=== PATIENT | female | born 1985 | race Hispanic/Latino ===

== ENCOUNTER → 2023-02-23 | Outpatient (CLI) | payer OTHER ==
[~2023-02-23] MED LIST: D 101000 PO; LISI20TA33 PO; METF500T13 PO; MULT-90 PO; SIMV-253 PO
== END ==
LOC: M WHC 09:28
PROVIDERS: ATTEND Internal Medicine
DX: N60.01 Solitary cyst of right breast (principal); R92.332 Mammographic heterogeneous density, left breast; N63.11 Unspecified lump in the right breast, upper outer quadrant

== ENCOUNTER → 2023-02-23 | Outpatient (CLI) | payer OTHER ==
[2023-02-23 11:05] VITALS: TEMP 98.4
[2023-02-23 13:31] VITALS: BP 122/60; O2SAT 98
== END ==
LOC: M WHCPRO 09:29 → EDUNIT# 11:00
PROVIDERS: ATTEND Internal Medicine
DX: C50.211 Malignant neoplasm of upper-inner quadrant of right female breast (principal); N60.01 Solitary cyst of right breast; N63.12 Unspecified lump in the right breast, upper inner quadrant; N63.11 Unspecified lump in the right breast, upper outer quadrant; R92.332 Mammographic heterogeneous density, left breast
CPT/HCPCS: 19083; 76642; 77065; 88305; G0279

== ENCOUNTER → 2023-03-30 | Outpatient (CLI) | payer OTHER ==
[~2023-03-30] MED LIST changes: +PROHANCE 279.3MG/ML 15ML VIAL ONE; +PROHANCE 279.3MG/ML 5ML VIAL ONE
== END ==
LOC: M PLAIMG 09:08
PROVIDERS: ATTEND Internal Medicine
DX: C50.911 Malignant neoplasm of unspecified site of right female breast (principal)
CPT/HCPCS: A9576; C8908

== ENCOUNTER → 2023-04-04 | Outpatient (REF) | payer OTHER ==
[~2023-04-04] MED LIST changes: -PROHANCE 279.3MG/ML 15ML VIAL ONE; -PROHANCE 279.3MG/ML 5ML VIAL ONE
[2023-04-04 14:56] LABS: FREE T4 1.21 NG/DL (0.89-1.76); THYROID STIMULATING HORMONE 1.841 uIU/ML (0.55-4.78)
[2023-04-04 14:57] LABS: FOLLICLE STIMULATING HORMONE 3.2 mIU/ML
[2023-04-05 10:48] LABS: LUTEINIZING HORMONE 3.2 mIU/ML
== END ==
LOC: M LAB REF 13:22
PROVIDERS: ATTEND Obstetrics & Gynecology
DX: N92.0 Excessive and frequent menstruation with regular cycle (principal)

== ENCOUNTER → 2023-04-13 | Outpatient (CLI) | payer OTHER | LOC: M WHC 14:13 | PROVIDERS: ATTEND Obstetrics & Gynecology | DX: N92.0 Excessive and frequent menstruation with regular cycle (principal); N88.8 Other specified noninflammatory disorders of cervix uteri ==

== ENCOUNTER 2023-08-18 10:31 | Emergency (ER) | payer OTHER ==
[~2023-08-18] VITALS: Ht 152.4 cm; Wt 88.6 kg
[2023-08-18] MEDS ORDERED: PROC5TAB57 (10:53)
[2023-08-18] MEDS ORDERED: ONDA-84 (10:53)
[2023-08-18] MEDS: NS 1,000 ML IV ONE (12:49)
[2023-08-18 12:57] LABS: HEMATOCRIT 34.7 % (36.0-47.0); HEMOGLOBIN 11.3 g/dl (12.0-15.5); MEAN CORPUSCULAR HEMOGLOBIN 29.3 pg (27.0-33.0); MEAN CORPUSCULAR HGB CONC 32.6 g/dl (32.0-36.5); MEAN CORPUSCULAR VOLUME 89.9 fl (80.0-96.0); PLATELET COUNT, AUTOMATED 351 10^3/uL (150-450); RED BLOOD COUNT 3.86 10^6/uL (4.00-5.40); WHITE BLOOD COUNT 21.7 10^3/uL (4.0-10.0)
[2023-08-18 13:10] LABS: INR 0.97; PARTIAL THROMBOPLASTIN TIME 24.1 SECONDS (24.8-34.2); PROTHROMBIN TIME 12.6 SECONDS (12.5-14.5)
[2023-08-18 13:12] LABS: ATYPICAL LYMPH 3 % (0-5); BASOPHILS 1 % (0-1); LYMPHOCYTES 11 % (16-44); MONOCYTES 1 % (0-5); NEUTROPHILS 77 % (28-66); PLATELET ESTIMATE NORMAL (NORMAL)
[2023-08-18 13:13] LABS: ANISOCYTOSIS 1+
[2023-08-18 13:26] LABS: CK-MB VALUE MASS < 1.0 NG/ML (<3.6); LIPASE 40 U/L (12-53)
[2023-08-18 13:28] LABS: CPK CREATINE PHOSPHOKINASE 42 U/L (34-145); MB/CK RELATIVE INDEX 2.38 (< OR =4)
[2023-08-18 13:29] LABS: ALBUMIN 3.8 G/DL (3.2-5.2); ALKALINE PHOSPHATASE 114 U/L (46-116); ALT/SGPT 32 U/L (7.0-40); AST/SGOT 12 U/L (<34); BILIRUBIN,DIRECT 0.2 MG/DL (<0.4); BILIRUBIN,TOTAL 0.6 MG/DL (0.3-1.2); BLOOD UREA NITROGEN 10 MG/DL (9-23); CALCIUM LEVEL 9.4 MG/DL (8.5-10.1); CARBON DIOXIDE LEVEL 27 MMOL/L (20-31); CHLORIDE LEVEL 103 MMOL/L (98-107); CREATININE FOR GFR 0.64 MG/DL (0.55-1.30); GLOMERULAR FILTRATION RATE > 60.0 (>60); GLUCOSE, FASTING 116 MG/DL (60-100); POTASSIUM SERUM 4.2 MMOL/L (3.5-5.1); SODIUM LEVEL 138 MMOL/L (136-145); TOTAL PROTEIN 7.1 G/DL (5.7-8.2)
[2023-08-18 13:30] LABS: FREE T4 1.47 NG/DL (0.89-1.76)
[2023-08-18 13:31] LABS: THYROID STIMULATING HORMONE 1.243 uIU/ML (0.55-4.78)
[2023-08-18] MEDS ORDERED: ISOVUE-370 76% 100ML VIAL As Ordered ONE (13:38)
[2023-08-18 13:53] LABS: HCG, SERUM QUALITATIVE NEGATIVE (NEGATIVE)
[2023-08-18 15:02] LABS: CK-MB VALUE MASS < 1.0 NG/ML (<3.6)
[2023-08-18 15:14] LABS: CPK CREATINE PHOSPHOKINASE 37 U/L (34-145)
[2023-08-18 16:19] VITALS: BP 123/74; TEMP 96.9; O2SAT 98
== END 2023-08-18 16:24 | disposition home or self-care (01) ==
LOC: M ED 10:31 → EDBD 10:31 → M ED 16:24
DX: R00.0 Tachycardia, unspecified (principal); E04.1 Nontoxic single thyroid nodule; Z85.3 Personal history of malignant neoplasm of breast; Z92.21 Personal history of antineoplastic chemotherapy; I10 Essential (primary) hypertension; E11.9 Type 2 diabetes mellitus without complications; Z79.84 Long term (current) use of oral hypoglycemic drugs; Z79.899 Other long term (current) drug therapy
CPT/HCPCS: 71275; 80048; 80076; 81001; 82550; 82553; 83690; 83880; 84439; 84443; 84484; 84703; 85025; 85610; 85730; 86140; 87040; 93005; 93041; 94760; 99285; Q9967

== ENCOUNTER → 2023-09-20 | Outpatient (CLI) | payer OTHER ==
[~2023-09-20] MED LIST changes: +ONDA-84; +PROC5TAB57; +VENL75CA47 PO
== END ==
LOC: M ONCR 07:48
PROVIDERS: ATTEND General Practice
DX: C50.111 Malignant neoplasm of central portion of right female breast (principal); R23.2 Flushing; Z79.818 Long term (current) use of other agents affecting estrogen receptors and estrogen levels; Z89.421 Acquired absence of other right toe(s); Z79.84 Long term (current) use of oral hypoglycemic drugs; Z79.899 Other long term (current) drug therapy; Z90.13 Acquired absence of bilateral breasts and nipples; Z92.21 Personal history of antineoplastic chemotherapy; Z98.890 Other specified postprocedural states

== ENCOUNTER 2023-10-20 09:45 | Outpatient (RCR) | payer OTHER | END 2023-10-21 | LOC: M ONCR 09:45 | PROVIDERS: ATTEND General Practice | DX: Z51.0 Encounter for antineoplastic radiation therapy (principal); C50.111 Malignant neoplasm of central portion of right female breast ==

== ENCOUNTER → 2023-11-20 | Outpatient (RCR) | payer OTHER ==
[~2023-11-20] MED LIST changes: +LIDO30CR18 TOP
== END ==
LOC: M ONCR 10-24 09:37
PROVIDERS: ATTEND General Practice
DX: Z51.0 Encounter for antineoplastic radiation therapy (principal); C50.111 Malignant neoplasm of central portion of right female breast

== ENCOUNTER 2023-11-24 07:26 | Outpatient (RCR) | payer OTHER ==
[2023-12-05] MEDS ORDERED: OXYC-517 PO (09:31)
== END 2023-12-21 ==
LOC: M ONCR 07:26
PROVIDERS: ATTEND General Practice
DX: Z51.0 Encounter for antineoplastic radiation therapy (principal); C50.111 Malignant neoplasm of central portion of right female breast

== ENCOUNTER → 2023-12-05 | Outpatient (CLI) | payer OTHER ==
[~2023-12-05] MED LIST changes: +OXYC-517 PO
== END ==
LOC: M ONCR 08:43
PROVIDERS: ATTEND General Practice
DX: L59.8 Other specified disorders of the skin and subcutaneous tissue related to radiation (principal); W88.8XXA Exposure to other ionizing radiation, initial encounter

== ENCOUNTER → 2023-12-20 | Outpatient (CLI) | payer OTHER | LOC: M ONCR 08:32 | PROVIDERS: ATTEND General Practice | DX: L58.9 Radiodermatitis, unspecified (principal); W88.8XXA Exposure to other ionizing radiation, initial encounter ==

== ENCOUNTER → 2024-01-11 | Outpatient (CLI) | payer OTHER ==
[~2024-01-11] MED LIST changes: +ERGO500029 PO; +FEMA2.5T4 PO; +LUPR22.5 IM; +SEMA1PEN2 SQ
== END ==
LOC: M WHC 09:19
PROVIDERS: ATTEND Nurse Practitioner Family
DX: Z85.3 Personal history of malignant neoplasm of breast (principal); Z79.818 Long term (current) use of other agents affecting estrogen receptors and estrogen levels; M85.89 Other specified disorders of bone density and structure, multiple sites

== ENCOUNTER 2024-01-22 10:34 | Day surgery (SDC) | payer OTHER ==
[~2024-01-22] VITALS: Ht 152.4 cm; Wt 77.7 kg
[2024-01-22] MEDS ORDERED: fentaNYL 100 MCG/2 ML INJECTION As Ordered ONE (10:57)
[2024-01-22] MEDS ORDERED: MIDAZOLAM INJ 2MG/2ML VIAL As Ordered ONE (10:57)
[2024-01-22] MEDS ORDERED: ONDANSETRON 4MG 2ML VIAL As Ordered ONE (10:58)
[2024-01-22] MEDS ORDERED: propofoL 200 MG/20 ML VIAL As Ordered ONE (10:58)
[2024-01-22] MEDS ORDERED: ROCURONIUM BROMIDE 50MG/5ML VIAL As Ordered ONE (10:58)
[2024-01-22] MEDS ORDERED: LIDOCAINE 2% 100MG/5ML SDV (FOR ANES.) As Ordered ONE (10:58)
[2024-01-22] MEDS ORDERED: ACETAMINOPHEN 1000MG/100ML IV BAG As Ordered ONE (11:05)
[2024-01-22] MEDS: NS 1,000 ML IV SCH (11:35)
[2024-01-22 11:53] LABS: HEMATOCRIT 35.2 % (36.0-47.0); HEMOGLOBIN 11.7 g/dl (12.0-15.5); MEAN CORPUSCULAR HEMOGLOBIN 29.6 pg (27.0-33.0); MEAN CORPUSCULAR HGB CONC 33.2 g/dl (32.0-36.5); MEAN CORPUSCULAR VOLUME 89.1 fl (80.0-96.0); PLATELET COUNT, AUTOMATED 259 10^3/uL (150-450); RED BLOOD COUNT 3.95 10^6/uL (4.00-5.40); WHITE BLOOD COUNT 6.4 10^3/uL (4.0-10.0)
[2024-01-22] MEDS ORDERED: HYDROmorphone HCL 2MG/ML 1ML VIAL As Ordered ONE (13:21)
[2024-01-22] MEDS ORDERED: KETAMINE HCL 200MG/20ML VIAL As Ordered ONE (13:21)
[2024-01-22] MEDS: ceFAZolin SOD 2 GM in IV 1 EA IV ONE (13:25)
[2024-01-22] MEDS: METHYLENE BLUE 0.5% (5MG/ML) 10 ML AMP (PROVAYBLUE) As Ordered ONE (13:49)
[2024-01-22] MEDS ORDERED: SUGAMMADEX SODIUM 500 MG/5 ML VIAL (BRIDION) As Ordered ONE (14:41)
[2024-01-22] MEDS ORDERED: ONDANSETRON 4MG 2ML VIAL IV PRN (15:00)
[2024-01-22] MEDS ORDERED: HYDROMORPHONE HCL 0.5 MG/ 0.5 ML SYRINGE IV PRN (15:00)
[2024-01-22] MEDS ORDERED: fentaNYL 100 MCG/2 ML INJECTION IV PRN (15:00)
[2024-01-22] MEDS ORDERED: oxyCODONE 5MG TAB PO PRN (15:00)
[2024-01-22] MEDS ORDERED: NS 1,000 ML IV SCH (15:00)
[2024-01-22] MEDS ORDERED: PERCOCET 5MG/325MG TAB PO PRN (15:55)
[2024-01-22] MEDS ORDERED: LR 1,000 ML IV SCH (16:00)
[2024-01-22 16:45] VITALS: BP 121/67; TEMP 97.5; O2SAT 96
[2024-01-22] MEDS ORDERED: IBUP-1022 PO (17:06)
== END 2024-01-22 18:00 | disposition home or self-care (01) ==
LOC: M SDC 10:34
PROVIDERS: ATTEND Specialist
DX: C50.111 Malignant neoplasm of central portion of right female breast (principal); Z15.01 Genetic susceptibility to malignant neoplasm of breast; E11.9 Type 2 diabetes mellitus without complications; I10 Essential (primary) hypertension; Z92.21 Personal history of antineoplastic chemotherapy; Z92.3 Personal history of irradiation; Z79.899 Other long term (current) drug therapy; E83.52 Hypercalcemia; N39.3 Stress incontinence (female) (male)
CPT/HCPCS: 57288; 58571; 81025; 85027; 86850; 86900; 86901; 88307; C1771; J0131; J0665; J0690; J1100; J1171; J2250; J2405; J3010; S2900

== ENCOUNTER → 2024-05-24 | Outpatient (CLI) | payer OTHER ==
[~2024-05-24] MED LIST changes: +FERR325T3 PO; +IBUP-1022 PO; +PANT40TA29; +VITA500C24 PO
== END ==
LOC: M ONCR 08:49
PROVIDERS: ATTEND General Practice
DX: Z08 Encounter for follow-up examination after completed treatment for malignant neoplasm (principal); Z85.3 Personal history of malignant neoplasm of breast; Z90.13 Acquired absence of bilateral breasts and nipples; Z98.890 Other specified postprocedural states; Z92.21 Personal history of antineoplastic chemotherapy; Z92.3 Personal history of irradiation; Z90.710 Acquired absence of both cervix and uterus; Z90.722 Acquired absence of ovaries, bilateral; Z90.79 Acquired absence of other genital organ(s); Z79.811 Long term (current) use of aromatase inhibitors; Z79.85 Long-term (current) use of injectable non-insulin antidiabetic drugs; Z79.84 Long term (current) use of oral hypoglycemic drugs; Z79.899 Other long term (current) drug therapy